=== PATIENT | female | born 1995 | race Caucasian/White ===

== ENCOUNTER 2019-07-01 05:42 | Emergency (ER) | payer MEDICAID, SELFPAY ==
[2019-07-01] VITALS (7 sets, daily range): BP systolic 113–127; BP diastolic 63–73; PULSE 80–98; RESP 16–18; TEMP 36.8; O2SAT 97–99; BMI 29.0
--- NOTE | 2019-07-01 05:45 | PC.NURSE ---
Patient brought in by EMS with abdominal pain, patient states that her pain started in her back on the right side and today she started having bad abdominal cramping around 2300 today. Patient states she was at work and started spotting. Patient states she came out of the bathroom after vomiting and woke up on the floor with her coworker above her. Patient states her has not been confirmed with an ultrasound.
--- NOTE | 2019-07-01 06:00 | ED_ITS ---
HPI - Abdominal Pain General: Chief Complaint: Abdominal Pain Stated Complaint: POSSIBLE MISCARRIAGE Time Seen by Provider: 07/01/19 06:00 History of Present Illness: HPI narrative: 24-year-old female presents complaining of vaginal bleeding and spotting that began overnight. Her last menstrual period was 04/18/2019 we will treat for 10 weeks and 4 days gestation patient self reports being SAB 7. Patient also reports having a ovarian cyst in the past. MD elicited complaint: abdominal pain Onset (ago): hour(s) (8 to 10 hours ago) Pain Consistency: intermittent Location: Suprapubic and Pelvis Severity: severe Quality: cramping and aching Migration to: other (Low back) Exacerbating factors: nothing Relieving factors: nothing Associated Symptoms: Reports nausea and other (Vaginal bleeding); Denies chills, dysuria and fever(s) Review of Systems Const: Denies: fever, chills, body aches, change in appetite, fatigue or malaise ENMT: Denies: throat pain, ear pain, nasal discharge or nasal congestion Card: Denies: chest pain, edema, shortness of breath on exertion or shortness of breath when lying down Resp: Denies: shortness of breath, productive cough or non-productive cough GI: Reports: nausea and other (Vaginal bleeding) : Denies: flank pain, difficulty urinating, painful urination, urinary frequency or urinary urgency Skin/Breast: Denies: rash or itching PFSH ED PFSH: Statuses (acute, chronic, etc) shown below reflect problem list status as previously entered and may not be historically accurate Social History Smoking and tobacco status: current every day smoker Female Reproductive History: : 10 Physical Exam Const: COMMON NORMALS: no apparent distress GENERAL APPEARANCE: cooperative and comfortable ORIENTATION/CONSCIOUSNESS: Yes awake, Yes oriented to person, Yes oriented to place and Yes oriented to time HENMT: COMMON NORMALS: normocephalic, head/scalp atraumatic, hearing grossly normal bilaterally, external ears normal, EAC's normal, TM's normal bilaterally, nasal mucous membranes and turbinates normal, moist oral mucous membranes and oropharynx normal HEAD & SCALP: normocephalic and atraumatic NOSE: nasal mucous membranes and turbinates normal EXTERNAL EAR: Yes external ears normal EXTERNAL AUDITORY CANAL: EAC's normal TYMPANIC MEMBRANE: TM's normal bilaterally Eye: COMMON NORMALS: PERRL, EOMs intact bilaterally, conjunctivae normal and no scleral icterus CONJUNCTIVA: Yes conjunctivae normal PUPIL: Yes PERRL Neck/C-Spine: COMMON NORMALS: full ROM, no lymphadenopathy, supple and no JVD Lymph: LYMPHATIC: no lymphadenopathy noted and no lymphedema noted Resp: COMMON NORMALS: normal respiratory effort, no retractions, no use of accessory muscles and clear to auscultation bilaterally AUSCULTATION: clear to auscultation bilaterally Cardio: COMMON NORMALS: no JVD, regular rate, regular rhythm and no murmurs RATE: regular rate RHYTHM: regular rhythm GI: COMMON NORMALS: soft to palpation and no hepatosplenomegaly AUSCULTATION: Yes normoactive bowel sounds PALPATION: Yes soft, No tender, No guarding and Yes no hepatosplenomegaly Back/Pelvis: OTHER: Pelvic exam done by VON Castellanos while I was attending to the patient. He reports copious cervical mucus semi-purulent moderate cervical motion tenderness no active bleeding from cervical loss. Extremity: COMMON NORMALS: normal to inspection, normal capillary refill, no clubbing, cyanosis or edema, no calf tenderness and no pedal edema Neuro: SENSORIUM/ORIENTATION: Yes oriented to person, Yes oriented to place and Yes oriented to time Skin: COMMON NORMALS: no rashes or lesions noted GENERAL SKIN EXAM: no rashes or lesions noted Course ED course: Stephanie findings with the patient we will go ahead and treat her as if she may have chlamydia infection she was given 500 Rocephin a gram of Zithromax follow-up with her primary care invoice classification clerk Vital Signs: Vital signs: Vital Signs Temperature 98.3 F 07/01/19 05:44 Pulse Rate 80 07/01/19 09:11 Respiratory Rate 16 07/01/19 09:11 Blood Pressure 116/71 07/01/19 09:11 Pulse Oximetry 97 07/01/19 09:11 MDM - Abdominal Pain Lab Data: Labs: Lab Results 07/01/19 07/01/19 07/01/19 Range/Units 06:11 06:11 06:11 WBC 7.6 (4.0-10.0) 10^3/ uL RBC 3.77 L (4.1-5.3) 10^6/u L Hgb 11.2 L (11.5-15.3) g/dL Hct 33.1 L (37.0-47.0) % MCV 87.8 (81-99) fL MCH 29.7 (28.0-34.0) pg MCHC 33.8 (30.0-36.0) g/dL RDW 12.5 (12.1-15.1) % Plt Count 236 (130-400) 10^3/c mm MPV 10.1 (7.4-10.4) fL Neut % (Auto) 60.2 % Lymph % (Auto) 31.4 % [place] % (Auto) 7.2 % Eos % (Auto) 0.9 % Baso % (Auto) 0.0 % Neut # (Auto) 4.6 (1.8-7.7) 10^3/u L Lymph # (Auto) 2.4 (0.8-4.8) 10^3/u L [place] # (Auto) 0.6 (0.2-0.9) 10^3/u L Eos # (Auto) 0.1 (0.0-0.8) 10^3/u L Baso # (Auto) 0.0 (0.0-0.1) 10^3/u L Nucleated RBC % (a uto) 0 % Nucleated RBCs # 0.0 /100WBC Sodium 136 (136-145) mmol/L Potassium 3.5 (3.5-5.1) mmol/L Chloride 105 (98-107) mmol/L Carbon Dioxide 21 L (22-29) mmol/L Anion Gap 13.5 (5-19) BUN 9 (6-20) mg/dL Creatinine 0.3 L (0.5-0.9) mg/dL GFR Calculation 273.3 H (90-130) mL/min Glucose 101 (65-115) mg/dL Calcium 8.7 (8.5-10.5) mg/dL Total Bilirubin < 0.2 (0.15-1.2) mg/dL AST 12 (0-32) U/L ALT 8 (0-33) U/L Alkaline Phosphata se 50 (35-105) IU/L Total Protein 6.1 L (6.6-8.7) g/dL Albumin 3.4 L (3.5-5.2) g/dL Globulin 2.7 (1.3-4.6) g/dL Ser , [place] 95127.00 mIU/mL Urine Color (Yellow) Urine Appearance (CLEAR) Urine pH (5-7) Ur Specific Gravit y (1.005-1.030) Urine Protein (Negative) Urine Glucose (UA) (Normal) Urine Ketones (Negative) Urine Occult Blood (Negative) Urine Nitrate (Negative) Urine Bilirubin (NEGATIVE) Urine Urobilinogen (Negative) mg/dL Ur Leukocyte Jessica ase (Negative) Urine RBC (0-2) /hpf Urine WBC (0-5) /hpf Ur Squamous Epith Cells (0-5) Urine Bacteria (NONE) Blood Type 07/01/19 07/01/19 Range/Units 06:11 06:15 WBC (4.0-10.0) 10^3/ uL RBC (4.1-5.3) 10^6/u L Hgb (11.5-15.3) g/dL Hct (37.0-47.0) % MCV (81-99) fL MCH (28.0-34.0) pg MCHC (30.0-36.0) g/dL RDW (12.1-15.1) % Plt Count (130-400) 10^3/c mm MPV (7.4-10.4) fL Neut % (Auto) % Lymph % (Auto) % [place] % (Auto) % Eos % (Auto) % Baso % (Auto) % Neut # (Auto) (1.8-7.7) 10^3/u L Lymph # (Auto) (0.8-4.8) 10^3/u L [place] # (Auto) (0.2-0.9) 10^3/u L Eos # (Auto) (0.0-0.8) 10^3/u L Baso # (Auto) (0.0-0.1) 10^3/u L Nucleated RBC % (a uto) % Nucleated RBCs # /100WBC Sodium (136-145) mmol/L Potassium (3.5-5.1) mmol/L Chloride (98-107) mmol/L Carbon Dioxide (22-29) mmol/L Anion Gap (5-19) BUN (6-20) mg/dL Creatinine (0.5-0.9) mg/dL GFR Calculation (90-130) mL/min Glucose (65-115) mg/dL Calcium (8.5-10.5) mg/dL Total Bilirubin (0.15-1.2) mg/dL AST (0-32) U/L ALT (0-33) U/L Alkaline Phosphata se (35-105) IU/L Total Protein (6.6-8.7) g/dL Albumin (3.5-5.2) g/dL Globulin (1.3-4.6) g/dL Ser , Roberto i-Qnt mIU/mL Urine Color Yellow (Yellow) Urine Appearance Cloudy (CLEAR) Urine pH 6 (5-7) Ur Specific Gravit y 1.020 (1.005-1.030) Urine Protein Neg (Negative) Urine Glucose (UA) Norm (Normal) Urine Ketones Negative (Negative) Urine Occult Blood Neg (Negative) Urine Nitrate Negative (Negative) Urine Bilirubin Neg (NEGATIVE) Urine Urobilinogen Norm (Negative) mg/dL Ur Leukocyte Jessica ase Negative (Negative) Urine RBC 0-4 H (0-2) /hpf Urine WBC 0-4 H (0-5) /hpf Ur Squamous Epith Cells 15-25 H (0-5) Urine Bacteria 2+ H (NONE) Blood Type A Positive Discharge Plan Discharge Patient Disposition: Home, Self-Care Clinical Impression: related condition in first trimester, Subchorionic hematoma in first trimester, Concern about STD in female without diagnosis Condition: Stable Discharge Orders: Discharge Order (Routine); Ordered 07/01/19 Ordered By: Osvaldo Guerra Discharge Diet: Usual diet Discharge Activity: Limit activity as instructed Activity Restrictions/Additional Instructions: Limited activity. Pelvic rest. Follow-up with your invoice classification clerk for repeat pel allan cultures and follow-up on subchorionic hemorrhage found on ultrasound today Discharge Date/Time: 07/01/19 09:11 Coding Level of Care Code ED Percussion Teacher for Ronaldo Hicks Exam Problem Focused
--- NOTE | 2019-07-01 06:10 | PC.NURSE ---
lab in room
--- NOTE | 2019-07-01 06:15 | PC.NURSE ---
Lab out of room, tech in room with urine clean catch packaging for patient.
--- NOTE | 2019-07-01 06:17 | PC.NURSE ---
Patient ambulated to bathroom
[2019-07-01 06:24] LABS: Eosinophils # 0.1 10^3/uL (0.0-0.8); Eosinophils % 0.9 %; Hematocrit 33.1 % (37.0-47.0); Hemoglobin 11.2 g/dL (11.5-15.3); Lymphocytes # 2.4 10^3/uL (0.8-4.8); Lymphocytes % 31.4 %; Mean Corpuscular HGB Conc 33.8 g/dL (30.0-36.0); Mean Corpuscular Hemoglobin 29.7 pg (28.0-34.0); Mean Corpuscular Volume 87.8 fL (81-99); Mean Platelet Volume 10.1 fL (7.4-10.4); Monocytes # 0.6 10^3/uL (0.2-0.9); Monocytes % 7.2 %; Neutrophils # 4.6 10^3/uL (1.8-7.7); Neutrophils % 60.2 %; Nucleated Red Blood Cells % 0 %; Platelet Count 236 10^3/cmm (130-400); Red Blood Count 3.77 10^6/uL (4.1-5.3); Red Cell Distribution Width 12.5 % (12.1-15.1); White Blood Count 7.6 10^3/uL (4.0-10.0)
[2019-07-01 06:40] LABS: Urine Appearance Cloudy (CLEAR); Urine Color Yellow (Yellow); pH Urine 6 (5-7)
[2019-07-01 06:41] LABS: Add Urine Microscopic? YES; Bilirubin Urine Neg (NEGATIVE); Blood Urine Neg (Negative); Glucose Urine UA Norm (Normal); Ketones Urine Negative (Negative); Leukocyte Esterase Urine Negative (Negative); Nitrate Urine Negative (Negative); Protein Urine Neg (Negative); Urobilinogen Urine Norm (Negative)
[2019-07-01 06:42] LABS: Add Urine Culture? No; Bacteria Urine 2+; RBC Urine 0-4 /hpf (0-2); Squamous Epithelial Cell Urine 15-25 (0-5); WBC Urine 0-4 /hpf (0-5)
[2019-07-01 07:10] LABS: Anion Gap 13.5 (5-19); Carbon Dioxide 21 mmol/L (22-29); Chloride 105 mmol/L (98-107); Potassium 3.5 mmol/L (3.5-5.1); Sodium 136 mmol/L (136-145)
[2019-07-01 07:11] LABS: Alanine Aminotransferase 8 U/L (0-33); Albumin Level 3.4 g/dL (3.5-5.2); Alkaline Phosphatase 50 IU/L (35-105); Aspartate Amino Transferase 12 U/L (0-32); Blood Urea Nitrogen 9 mg/dL (6-20); Calcium 8.7 mg/dL (8.5-10.5); Globulin 2.7 g/dL (1.3-4.6); Glomerular Filtration Rate 273.3 mL/min (90-130); Glucose 101 mg/dL (65-115); Total Bilirubin < 0.2 mg/dL (0.15-1.2); Total Protein 6.1 g/dL (6.6-8.7)
[2019-07-01] MEDS: morphine 4 mg/mL SDV 1 mL 2 MG IVP (07:18)
[2019-07-01] MEDS: ondansetron 2 mg/ML SDV 2 mL 4 MG IVP (07:18)
--- NOTE | 2019-07-01 07:27 | US_ITS ---
WS: [id number] EARLY OBSTETRICAL ULTRASOUND (<14 WEEKS). HISTORY: threatened AB COMPARISON: None available. Single intrauterine gestational sac is identified. Cardiac activity at 157 BPM. Windmill-rump length heather sures 2.4 cm which corresponds to a gestation of 9w0d. Normal-appearing yolk sac and amnion demonstra viviane. Smallsubchorionic hemorrhage.Complex fluid collection along the lower gestational sac measures 3 .4 x 0.7 x 1.0 cm. This is at the internal cervical os. Cervix remains closed. No free fluid. Neither ovary is identified. US/US OB limited [id number] IMPRESSION: 1. Single intrauterine gestation of 9 weeks 0 days and EDC of 02/03/2020. 2. Normal cardiac activity. 3. Small subchorionic hemorrhage near the internal cervical os.
--- NOTE | 2019-07-01 07:36 | W.ED.ABDPA2 ---
HPI - Abdominal Pain General: Chief Complaint: Abdominal Pain Stated Complaint: POSSIBLE MISCARRIAGE Time Seen by Provider: 07/01/19 06:00 History of Present Illness: MD elicited complaint: abdominal pain Severity: severe Quality: cramping and aching Migration to: other (Low back) Exacerbating factors: nothing Relieving factors: nothing PFSH ED PFSH: Statuses (acute, chronic, etc) shown below reflect problem list status as previously entered and may not be historically accurate Social History Smoking and tobacco status: current every day smoker Female Reproductive History: : 10 Physical Exam : SPECULUM EXAM - CERVIX: Yes cervical os closed, Yes mucoid cervix, Yes cervical tenderness and Yes other (erythema to the cervix) BIMANUAL EXAM - VAGINA & UTERUS: Yes cervical tenderness Course ED course: 734, pelvic exam completed for Dr. Da Silva. Cervical office is closed inflammation and friability is noted at the external cervical tissue. No blood at the office opening is noted. Cloudy mucoid discharge is noted from the cervix. Dr. Guerra informed of abnormalities and collection of swabs. ww Vital Signs: Vital signs: Vital Signs Temperature 98.3 F 07/01/19 05:44 Pulse Rate 87 07/01/19 07:43 Respiratory Rate 16 07/01/19 07:43 Blood Pressure 113/63 07/01/19 07:43 Pulse Oximetry 97 07/01/19 07:43 MDM - Abdominal Pain Lab Data: Labs: Lab Results 07/01/19 07/01/19 07/01/19 Range/Units 06:11 06:11 06:11 WBC 7.6 (4.0-10.0) 10^3/ uL RBC 3.77 L (4.1-5.3) 10^6/u L Hgb 11.2 L (11.5-15.3) g/dL Hct 33.1 L (37.0-47.0) % MCV 87.8 (81-99) fL MCH 29.7 (28.0-34.0) pg MCHC 33.8 (30.0-36.0) g/dL RDW 12.5 (12.1-15.1) % Plt Count 236 (130-400) 10^3/c mm MPV 10.1 (7.4-10.4) fL Neut % (Auto) 60.2 % Lymph % (Auto) 31.4 % [place] % (Auto) 7.2 % Eos % (Auto) 0.9 % Baso % (Auto) 0.0 % Neut # (Auto) 4.6 (1.8-7.7) 10^3/u L Lymph # (Auto) 2.4 (0.8-4.8) 10^3/u L [place] # (Auto) 0.6 (0.2-0.9) 10^3/u L Eos # (Auto) 0.1 (0.0-0.8) 10^3/u L Baso # (Auto) 0.0 (0.0-0.1) 10^3/u L Nucleated RBC % (a uto) 0 % Nucleated RBCs # 0.0 /100WBC Sodium 136 (136-145) mmol/L Potassium 3.5 (3.5-5.1) mmol/L Chloride 105 (98-107) mmol/L Carbon Dioxide 21 L (22-29) mmol/L Anion Gap 13.5 (5-19) BUN 9 (6-20) mg/dL Creatinine 0.3 L (0.5-0.9) mg/dL GFR Calculation 273.3 H (90-130) mL/min Glucose 101 (65-115) mg/dL Calcium 8.7 (8.5-10.5) mg/dL Total Bilirubin < 0.2 (0.15-1.2) mg/dL AST 12 (0-32) U/L ALT 8 (0-33) U/L Alkaline Phosphata se 50 (35-105) IU/L Total Protein 6.1 L (6.6-8.7) g/dL Albumin 3.4 L (3.5-5.2) g/dL Globulin 2.7 (1.3-4.6) g/dL Ser , [place]Qnt 25460.00 mIU/mL Urine Color (Yellow) Urine Appearance (CLEAR) Urine pH (5-7) Ur Specific Gravit y (1.005-1.030) Urine Protein (Negative) Urine Glucose (UA) (Normal) Urine Ketones (Negative) Urine Occult Blood (Negative) Urine Nitrate (Negative) Urine Bilirubin (NEGATIVE) Urine Urobilinogen (Negative) mg/dL Ur Leukocyte Jessica ase (Negative) Urine RBC (0-2) /hpf Urine WBC (0-5) /hpf Ur Squamous Epith Cells (0-5) Urine Bacteria (NONE) Blood Type 07/01/19 07/01/19 Range/Units 06:11 06:15 WBC (4.0-10.0) 10^3/ uL RBC (4.1-5.3) 10^6/u L Hgb (11.5-15.3) g/dL Hct (37.0-47.0) % MCV (81-99) fL MCH (28.0-34.0) pg MCHC (30.0-36.0) g/dL RDW (12.1-15.1) % Plt Count (130-400) 10^3/c mm MPV (7.4-10.4) fL Neut % (Auto) % Lymph % (Auto) % [place] % (Auto) % Eos % (Auto) % Baso % (Auto) % Neut # (Auto) (1.8-7.7) 10^3/u L Lymph # (Auto) (0.8-4.8) 10^3/u L [place] # (Auto) (0.2-0.9) 10^3/u L Eos # (Auto) (0.0-0.8) 10^3/u L Baso # (Auto) (0.0-0.1) 10^3/u L Nucleated RBC % (a uto) % Nucleated RBCs # /100WBC Sodium (136-145) mmol/L Potassium (3.5-5.1) mmol/L Chloride (98-107) mmol/L Carbon Dioxide (22-29) mmol/L Anion Gap (5-19) BUN (6-20) mg/dL Creatinine (0.5-0.9) mg/dL GFR Calculation (90-130) mL/min Glucose (65-115) mg/dL Calcium (8.5-10.5) mg/dL Total Bilirubin (0.15-1.2) mg/dL AST (0-32) U/L ALT (0-33) U/L Alkaline Phosphata se (35-105) IU/L Total Protein (6.6-8.7) g/dL Albumin (3.5-5.2) g/dL Globulin (1.3-4.6) g/dL Ser , Roberto i-Qnt mIU/mL Urine Color Yellow (Yellow) Urine Appearance Cloudy (CLEAR) Urine pH 6 (5-7) Ur Specific Gravit y 1.020 (1.005-1.030) Urine Protein Neg (Negative) Urine Glucose (UA) Norm (Normal) Urine Ketones Negative (Negative) Urine Occult Blood Neg (Negative) Urine Nitrate Negative (Negative) Urine Bilirubin Neg (NEGATIVE) Urine Urobilinogen Norm (Negative) mg/dL Ur Leukocyte Jessica ase Negative (Negative) Urine RBC 0-4 H (0-2) /hpf Urine WBC 0-4 H (0-5) /hpf Ur Squamous Epith Cells 15-25 H (0-5) Urine Bacteria 2+ H (NONE) Blood Type A Positive Coding Level of Care Code ED Set Up Mechanic Crown Assembly Machine for Chg Fabiola
[2019-07-01] MEDS: cefTRIAXone 1,000 mg SDV 500 MG IM (08:30)
[2019-07-01] MEDS: azithromycin 250 mg Tablet 1000 MG PO (08:32)
--- NOTE | 2019-07-04 10:44 | DCPLANNER ---
Patient is to follow up with her solvent plant treater, pillowcase maker called patient to confirm that patient had an solvent plant treater, and if patient would like for pillowcase maker to get patient established with someone an schedule an appointment for patient. airport operations duty manager unable to speak with patient at this time, a voicemail was left for patient to return case planner phone call.
== END 2019-07-01 09:11 | disposition home or self-care (01) ==
PROVIDERS: Emergency Provider Family Medicine
DX: O20.8 Other hemorrhage in early pregnancy (principal); O99.331 Smoking (tobacco) complicating pregnancy, first trimester; F17.210 Nicotine dependence, cigarettes, uncomplicated; Z3A.10 10 weeks gestation of pregnancy
CPT/HCPCS: 36415; 76815; 80053; 81001; 84702; 85025; 86900; 87070; 87210; 87491; 87591; 87661; 96372; 96374; 96375; 99284; A9270; J0696; J2270; J2405; Q0144

== ENCOUNTER → 2019-08-30 13:27 | Outpatient (BNVA) | payer MEDICAID, SELFPAY | PROVIDERS: Visit Provider Nurse Practitioner Family | DX: Z11.59 Encounter for screening for other viral diseases (principal); Z3A.20 20 weeks gestation of pregnancy; Z20.828 Contact with and (suspected) exposure to other viral communicable diseases | CPT/HCPCS: 87400; 87635 ==

== ENCOUNTER 2019-11-08 18:30 | Outpatient (CLI) | payer MEDICAID, SELFPAY ==
[2019-11-08] VITALS (9 sets, daily range): BP systolic 102–122; BP diastolic 54–73; PULSE 78–88; RESP 15–18; TEMP 36.7–36.9; BMI 29.9
[2019-11-08 18:49] LABS: Nitrazine Paper, PH Positive
[2019-11-08 18:59] LABS: Actim Prom Negative
[2019-11-08] MEDS: betamethasone susp 6 mg/mL 5 mL 12 MG IM (19:15)
[2019-11-08 19:58] LABS: Actim Prom Negative
--- NOTE | 2019-11-08 19:59 | PC.NURSE ---
1940 DR NGUYEN AND THIS NURSE AT BEDSIDE; DR NGUYEN TOOK SAMPLES OF LEAKED FLUID FOR FERN TEST. DR NGUYEN STATED THERE WERE NO SIGNS PT WAS GROSSLY RUPTURED, DR NGUYEN'S NITRIZINE TEST WAS NEGATIVE. ACTIM PROM REPERFORMED BY DR NGUYEN ALSO.
--- NOTE | 2019-11-08 20:05 | US_ITS ---
WS: [id number] US OB limited [id number] REASON FOR EXAM: RAJIV AND CERVICAL LENGTH FINDINGS: Anterior placenta is identified. heart rate 157 beats for minute. The cervix measured 5.72 cm Femoral length 5.54 cm 29 weeks 1 day gestation due date January 23, 2020 Amniotic fluid indices 12.88 cm. US/ OB limited [id number] IMPRESSION: Normal amniotic fluid indices Normal cervix Interuterine at 29 weeks 1 day gestation due date January 23, 2020.
--- NOTE | 2019-11-08 20:21 | PM.SDS ---
Short Stay Summary Providers Date of Admit/Discharge: 11/08/19 Attending Provider: Yun Baum MD Chief Complaint: abd pain HPI History of Present Illness Angelica Diaz is a 24 year old female G3, P2 at 29 weeks gestation with an PENNIE of 01/24/2020 who presented to labor and delivery complaining of regular contractions and loss of fluid. She states that she had been sandra since about 9:00 last evening. At first they were irregular. Around 2 PM this afternoon they became more frequent every 5 to 10 minutes. She states that she tried to rest relax and drink water to make them go away. However around 4:30 in the afternoon she felt a gush of fluid and had concern for rupture of membranes so she presented to labor and delivery. While standing in triage she had another gush of fluid that wet her pants and the floor. She felt that she was sandra about every 10 minutes. She was feeling baby move well. She had no vaginal bleeding. Review of Systems Const: Denies: fever(s) or chills Eyes: Denies: blurry vision ENMT: Denies: throat pain Card: Denies: syncope or dyspnea on exertion Resp: Denies: dyspnea, productive cough or non-productive cough GI: Reports: nausea (She thinks from being hungry); Denies: abdominal pain or change in bowel habits : Reports: other (Contractions as close as every 5 to 10 minutes); Denies: flank pain, difficulty voiding, dysuria, genital pruritis, vaginal bleeding or pelvic pain Musc: Denies: back pain or extremity pain Skin/Breast: Denies: rash Home Meds/Allergies Home Medications and Allergies Home Medications Medication Instructions Recorded Confirmed Type prenat.vits,daniel,jbv-[id number]-bjood 1 tab PO DAILY 08/30/19 08/30/19 History Allergies Allergy/AdvReac Type Severity Reaction Status Date / Time etonogestrel [From Nexplanon] Allergy ALGY-Hives Verified 08/30/19 10:02 PFSH Acute PFSH: Social History (Updated 08/30/19 @ 10:47 by Sydnee Villarreal LPN, RT) Smoking and tobacco status: smoker, details unknown cigarettes Packs smoked per day: 0.5 Years cigarettes smoked: 8 Lives independently: Yes Household members: spouse Marital status: Current occupational status: employed 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[place], [place]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 Current gender identity: Female Female Reproductive History: : 3 Vitals/I&O/Wt Last Vital Signs Temp 98.4 F 11/08/19 20:11 Pulse 80 11/08/19 20:18 Resp 16 11/08/19 20:11 BP 105/56 11/08/19 20:18 Weight last 48 hrs Weight 186 lb Physical Exam Const: COMMON NORMALS: no acute distress and healthy appearing GENERAL APPEARANCE: cooperative and comfortable; not in distress HENMT: COMMON NORMALS: normocephalic and atraumatic HEAD & SCALP: normocephalic and atraumatic FACE & SINUS: normal facial exam Eye: COMMON NORMALS: Equal, round and reactive pupils present and EOMs intact bilaterally PUPIL: Yes Equal, round and reactive pupils present GI: COMMON NORMALS: Soft to palpation and non-tender PALPATION: Yes Soft to palpation and Yes Other GI palpation findings present (Fundal height 29 cm) : EXTERNAL FEMALE EXAM: Yes normal appearance of the urethra SPECULUM EXAM - VAGINA: No vaginal bleeding, No swelling and Yes Vaginal discharge present Vaginal discharge present: white (Minimal flecks adhearant to olivas) SPECULUM EXAM - CERVIX: Yes Cervical os closed, Yes mucoid cervix and Yes Other cervical findings present (No pooling, nitrazine negative) OB/EXTERNAL & SPECULUM: No vaginal bleeding Extremity: GENERAL: No calf tenderness and No edema Psych: COMMON NORMALS: mental status grossly normal APPEARANCE: Yes grossly normal ATTITUDE: Yes calm (She seems more concerned about getting a snack and s providing her with pants to go home in) SSS Data Data Completed and Pending: Pending at discharge Category Date Time Status US OB limited [id number] Stat Ultrasound 11/08/19 20:05 Ordered Diagnoses at Discharge Discharge Diagnosis (1) 29 weeks gestation of : Status: Acute Problem details: Due to the amount of clear fluid leaking the patient was given a dose of betamethasone while further tests were pending. (2) Abnormal vaginal fluids: Status: Acute Problem details: The patient had negative nitrazine done by nursing. She had ActimPROM that was also negative. Nursing was still concerned for rupture-- due to the amount of clear fluid they witnessed on her clothes, ian, and floor. I presented to labor and delivery and performed speculum examination. There was no pooling. Vaginal fern test x2, one including cervical mucus, were negative. Nitrazine was negative from vaginal vault and positive from cervical mucus. I also performed an ActimPROM and fern on her saturated chuk - both were negative. Thus I am doubtful that she is ruptured. To be extra cautious however we will have ultrasound come and check her RAJIV as well as cervical length. 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 Patient states that since receiving the betamethasone she has not felt any more contractions. Ultrasound for cervical length is currently pending. Update cervical length is greater than 4 cm and she has continued to not show any contractions nor has she felt any since receiving the betamethasone. She will be discharged home Discharge Plan Discharge Patient Disposition: Home, Self-Care Prescriptions: No Action prenat.vits,daniel,[id number] Tablet 1 tab PO DAILY RF: 0 Diet: Usual diet Activity: Resume usual activity Patient Instructions: OB Undelivered Discharge Activity Restrictions/Additional Instructions: f/u as scheduled Attestations Medical Necessity Statement*: Possible rupture of membranes and contractions with need for continuous monitoring and further evaluation Time Spent in Patient Care*: greater than 30 min Quality Metrics Clinical Quality Measures: During this hospital stay, did patient experience: None Coding Level of Care Code Acute Proofing Machine Operator for Chg Fwd Diagnoses 29 weeks gestation of Z3A.29 Abnormal vaginal fluids R87.9 Premature uterine contractions O47.9
== END 2019-11-08 20:45 | disposition home or self-care (01) ==
LOC: OPOB 18:31 → OBGYN 18:31
PROVIDERS: Visit Provider Family Medicine
DX: O47.9 False labor, unspecified (principal); Z3A.29 29 weeks gestation of pregnancy
CPT/HCPCS: 12345; 76815; 83986; 84112; 96372; 99211; J0702

== ENCOUNTER 2019-11-24 14:10 | Outpatient (CLI) | payer MEDICAID, SELFPAY ==
[2019-11-24 14:10] VITALS: BMI 30.7
[2019-11-24 14:18] VITALS: BP 118/67; PULSE 104; RESP 18; TEMP 36.7
[2019-11-24 14:34] VITALS: BP 114/58; PULSE 100
== END 2019-11-24 14:50 | disposition home or self-care (01) ==
LOC: OPOB 14:36
PROVIDERS: Visit Provider Family Medicine
DX: O36.8190 Decreased fetal movements, unspecified trimester, not applicable or unspecified (principal); Z3A.00 Weeks of gestation of pregnancy not specified
CPT/HCPCS: 59025; 99211

== ENCOUNTER 2019-12-16 14:42 | Outpatient (CLI) | payer MEDICAID, SELFPAY ==
[2019-12-16] VITALS (26 sets, daily range): BP systolic 0–132; BP diastolic 0–77; PULSE 87–116; RESP 17; TEMP 36.8; O2SAT 96–99; BMI 31.3
[2019-12-16] MEDS: terbutaline 1 mg/mL INJ 0.25 MG SUBCUT ×2 (16:28→17:51)
[2019-12-16] MEDS: lactated ringers 1,000 ML 999 ML IV (17:53)
[2019-12-16] MEDS: NIFEdipine ER (24 hr) 30 mg Tablet PO (17:54)
== END 2019-12-16 18:45 | disposition home or self-care (01) ==
LOC: OPOB 14:49 → OBGYN 18:38
PROVIDERS: Visit Provider Family Medicine
DX: O26.899 Other specified pregnancy related conditions, unspecified trimester (principal); Z3A.00 Weeks of gestation of pregnancy not specified; N89.8 Other specified noninflammatory disorders of vagina; R10.9 Unspecified abdominal pain
CPT/HCPCS: 36415; 59025; 83986; 96372; 99211; J3105

== ENCOUNTER 2019-12-22 14:54 | Outpatient (CLI) | payer MEDICAID, SELFPAY ==
[2019-12-22] VITALS (30 sets, daily range): BP systolic 0–142; BP diastolic 0–79; PULSE 93–122; TEMP 37.5; O2SAT 95–98; BMI 31.3
[2019-12-22] MEDS: NIFEdipine ER (24 hr) 30 mg Tablet PO (16:20)
[2019-12-22] MEDS: terbutaline 1 mg/mL INJ 0.25 MG SUBCUT (16:21)
[2019-12-22] MEDS: lactated ringers 1,000 ML 999 ML IV (16:24)
[2019-12-22 16:25] LABS: Nitrazine Paper, PH Negative
== END 2019-12-22 17:30 | disposition home or self-care (01) ==
LOC: OPOB 15:01 → OBGYN 15:01
PROVIDERS: Visit Provider Family Medicine
DX: O26.899 Other specified pregnancy related conditions, unspecified trimester (principal); Z3A.00 Weeks of gestation of pregnancy not specified; R10.9 Unspecified abdominal pain
CPT/HCPCS: 59025; 83986; 96372; 99211; J3105

== ENCOUNTER 2020-01-02 16:39 | Outpatient (CLI) | payer MEDICAID, SELFPAY ==
[2020-01-02 16:39] VITALS: BMI 30.7
[2020-01-02 17:05] VITALS: BP 126/72; PULSE 105
[2020-01-02 17:10] VITALS: TEMP 36.8
[2020-01-02 17:21] LABS: Nitrazine Paper, PH Negative
[2020-01-02 18:07] VITALS: BP 126/72; PULSE 105; TEMP 36.8
== END 2020-01-02 17:40 | disposition home or self-care (01) ==
LOC: OPOB 16:50 → OBGYN 17:35
PROVIDERS: Visit Provider Family Medicine
DX: O26.899 Other specified pregnancy related conditions, unspecified trimester (principal); Z3A.00 Weeks of gestation of pregnancy not specified; R10.9 Unspecified abdominal pain
CPT/HCPCS: 59025; 83986; 99211

== ENCOUNTER 2020-01-07 22:52 | Inpatient (IN) | payer MEDICAID, SELFPAY ==
[2020-01-07 21:17] VITALS: BMI 30.2
[2020-01-07 21:25] VITALS: BP 117/71; PULSE 105; RESP 18; TEMP 36.6
[2020-01-07] MEDS: lactated ringers 1,000 ML 999 ML IV (23:22)
[2020-01-08] VITALS (150 sets, daily range): BP systolic 0–153; BP diastolic 0–105; PULSE 62–128; RESP 16–18; TEMP 36.6–37; O2SAT 94–100
[2020-01-08 00:13] LABS: Basophils % 0.2 %; Eosinophils # 0.1 10^3/uL (0.0-0.8); Eosinophils % 0.6 %; Hematocrit 32.9 % (37.0-47.0); Hemoglobin 10.9 g/dL (11.5-15.3); Lymphocytes # 2.7 10^3/uL (0.8-4.8); Lymphocytes % 25.2 %; Mean Corpuscular HGB Conc 33.1 g/dL (30.0-36.0); Mean Corpuscular Hemoglobin 30.1 pg (28.0-34.0); Mean Corpuscular Volume 90.9 fL (81-99); Mean Platelet Volume 10.8 fL (7.4-10.4); Monocytes # 0.8 10^3/uL (0.2-0.9); Monocytes % 7.8 %; Neutrophils % 65.8 %; Nucleated Red Blood Cells % 0 %; Platelet Count 259 10^3/cmm (130-400); Red Blood Count 3.62 10^6/uL (4.1-5.3); Red Cell Distribution Width 12.3 % (12.1-15.1); White Blood Count 10.6 10^3/uL (4.0-10.0)
--- NOTE | 2020-01-08 01:29 | ANES.PREANE2 ---
Pre-Anesthetic Assessment Pre-Anesthetic Assessment: Height/Weight: Height 1.68 m Weight 84.822 kg Temp Pulse Resp BP Pulse Ox 97.8 F 85 18 111/60 98 01/07/20 21:25 01/08/20 01:24 01/07/20 21:25 01/08/20 01:24 01/08/20 01:23 Preop Diagnosis: IUP Proposed Procedure: Labor epidural Was Beta Jess taken within 24 hours: N/A Social: Social History: No alcohol and No tobacco Exam: Pre-Anes Outpt Exam: alert, oriented x 3 and clear to auscultation bilaterally Airway: Submandibular: WNL Cervical ROM: WNL MP: 1 Pulmonary: Pulmonary: None reported CV/HEM: CV/HEM: None reported : : None reported Hepatic: Hepatic: None reported GI: GI: GERD Metabolic: Metabolic: None reported Musc/skel: Musc/skel: None reported Neuropsych: Neuropsych: None reported Anesthetic Plan: ASA status: 1 Anesthesia: Anesthesia Evaluation and Eval. for regional block Meds/Allergies Current Medications: Current Medications Generic Name Dose Route Start Last Admin Trade Name Freq PRN Reason Stop Dose Admin Lactated Ringer's 1,000 mls @ 999 m ls/hr 01/07/20 22:54 01/07/20 23:22 Lactated Ringers IV 999 mls/hr .Q1H1M PRN Administration ANESTHESIA PFSH Anesthesia PFSH: Social History (Updated 08/30/19 @ 10:47 by Sydnee Villarreal LPN, RT) Smoking and tobacco status: smoker, details unknown cigarettes Packs smoked per day: 0.5 Years cigarettes smoked: 8 Lives independently: Yes Household members: spouse Marital status: Current occupational status: employed 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[place], [place]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 Current gender identity: Female Female Reproductive History: : 3 Data Anesthesia CBC & Chem 7: 01/07/20 23:10 Other Labs: Laboratory Results - last 48 hr 01/07/20 01/07/20 23:10 23:10 WBC 10.6 H RBC 3.62 L Hgb 10.9 L Hct 32.9 L MCV 90.9 MCH 30.1 MCHC 33.1 RDW 12.3 Plt Count 259 MPV 10.8 H Neut % (Auto) 65.8 Lymph % (Auto) 25.2 [place] % (Auto) 7.8 Eos % (Auto) 0.6 Baso % (Auto) 0.2 Neut # (Auto) 7.00 Lymph # (Auto) 2.7 [place] # (Auto) 0.8 Eos # (Auto) 0.1 Baso # (Auto) 0.0 Nucleated RBC % (auto) 0 Nucleated RBCs # 0.0 Blood Type A Positive Rho(D) Type Positive Antibody Screen Negative Cardiac Studies: No Data to Display Anesthesia Procedures Date of Procedure: 01/08/20 Epidural: Time Out Performed: Yes Consents Signed: Procedure Consent Consent: requested by attending/covering physician, from patient and risks and benefits reviewed Lumbar Level: L3-L4 Epidural position: sitting Epidural procedure: sterile prep of area, 1% lidocaine to numb the area (3 cc), 18 g needle (L3-L4 interspace), negative for paresthesia passed, neg for paresthesia, test dose given (3 cc), 0.2% Ropivacaine bolus ml (10 ml ), placed PCEA (13 mls/hr) and 0.2% Ropiavacaine @ mls/hr (13)
[2020-01-08] MEDS: ondansetron 2 mg/ML SDV 2 mL 4 MG IVP ×2 (02:47→17:10)
[2020-01-08] MEDS: dextrose 5%-lactated ringers 1,000 ML 125 ML IV ×3 (03:32→19:02)
[2020-01-08] MEDS: oxytocin 30 UNIT/500 ML BAG IV (11:30)
--- NOTE | 2020-01-08 20:15 | P.HP_ITS ---
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 Her cervix changed from 3 cm to 7 cm and then she seemed to stall out. She received an epidural for pain management. Present Details : 3 Para: 2 Labs Rubella: Immune RPR: Negative GBS: Negative Review of Systems Const: Denies: fever(s) or chills Eyes: Denies: change in vision ENMT: Denies: throat pain Card: Reports: swelling of feet/ankles; Denies: chest pain, palpitations or irregular heart rhythm Resp: Denies: dyspnea, productive cough or chest congestion GI: Reports: abdominal pain (Regular contractions on presentation); Denies: nausea or vomiting : Denies: flank pain Musc: Denies: neck pain Medications/Allergies Home Medications Medication Instructions Recorded Confirmed Last Taken Type prenat.vits,daniel,ubz-nmcd-eminx 1 tab PO DAILY 08/30/19 01/07/20 01/07/20 11:00 History Allergies Allergy/AdvReac Type Severity Reaction Status Date / Time etonogestrel [From Nexplanon] Allergy ALGY-Hives Verified 01/07/20 21:46 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 PFSH: Social History (Updated 08/30/19 @ 10:47 by Sydnee Villarreal LPN, RT) Smoking and tobacco status: smoker, details unknown cigarettes Packs smoked per day: 0.5 Years cigarettes smoked: 8 Lives independently: Yes Household members: spouse Marital status: Current occupational status: employed 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[place], [place]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 Current gender identity: Female History History History 3 Term 2 Miscarriages/Ectopic Living Children 2 Vitals/I&O/Wt Last Vital Signs Temp 98.2 F 01/08/20 17:07 Pulse 72 01/08/20 20:12 Resp 16 01/08/20 17:07 BP 103/60 01/08/20 20:12 Pulse Ox 97 01/08/20 02:19 01/08/20 01/08/20 01/08/20 06:59 14:59 22:59 Intake Total 1000 / 1000 1452.800 / 1452.800 673.367 / 2126.167 Output Total 700 / 700 400 / 1100 Balance 1000 / 1000 752.800 / 752.800 273.367 / 1026.167 Weight last 48 hrs Weight 187 lb Weight 187 lb Physical Exam Const: COMMON NORMALS: no acute distress and healthy appearing GENERAL APPEARANCE: cooperative and comfortable HENMT: COMMON NORMALS: normocephalic and atraumatic HEAD & SCALP: normal to inspection FACE & SINUS: normal facial exam Eye: COMMON NORMALS: Equal, round and reactive pupils present and EOMs intact bilaterally Lymph: LYMPHATIC: no lymphadenopathy noted Chest: COMMONS NORMALS: normal inspection of the chest Resp: COMMON NORMALS: normal respiratory effort, No retractions, No use of accessory muscles and clear to auscultation bilaterally Cardio: COMMON NORMALS: regular rate and regular rhythm GI: INSPECTION: Yes normal to inspection PALPATION: No Tenderness to palpation present (GI) (Gravid) Extremity: COMMON NORMALS: normal to inspection Psych: COMMON NORMALS: mental status grossly normal Urinary Catheter Management^: Tran Latex: Cath Placed During This Visit: yes Reason for Continuing Indwelling Catheter: Accurate Measurement of Urinary Output in Critically Ill Patients Urinary Catheter Date of Insertion: 01/08/20 Urinary Catheter Time of Insertion: 02:00 Data : 01/07/20 23:10 A&P Assessment and plan (1) 37 weeks gestation of : Status: Acute (2) Active labor at term: The patient's labor seems to have stalled out at 7 cm. Her cervix is still extremely thick and baby is very ballotable. We have started her on Pitocin and are titrating this upward. She is comfortable with her epidural. 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
--- NOTE | 2020-01-08 23:02 | PM.MISC ---
Miscellaneous Note Purpose of Documentation: epidural assessment. called to ob for pt complaining of increasing pain over last couple hours despite use of pcea. pt assessed and evaluated and given 4cc 2% lidocaine PF and 100mcg fentanyl via the epidural. Vital signs monitored throughout and charted via RN. last BP 101/56. Pain much improved over 10 minutes.
[2020-01-09] VITALS (23 sets, daily range): BP systolic 92–123; BP diastolic 52–76; PULSE 61–97; RESP 14–16; TEMP 36.4–37; O2SAT 97–98
--- NOTE | 2020-01-09 00:18 | P.PCNOB_ITS ---
Delivery Note: Date of delivery: January 09, 2020 Pre-Delivery Course: The patient had routine care at [facility]. There were no true complications of the however the patient had frequent labor and delivery triage visits for contractions and loss of fluid. She was blood type a positive antibody negative, GC/chlamydia negative, hep B surface antigen NR, hep C antibody NR, HIV NR, rubella immune. She passed her glucose tolerance test. She was GBS negative. Delivery: This 24-year-old G3, P2 presented to labor and delivery at 37 weeks 5 days gestation in active labor. Her labor stalled out at about 7 cm dilation. She received an epidural for pain management. Her labor was then augmented using Pitocin. She had spontaneous rupture of membranes with clear fluid less than 1 hour prior to delivery. The infant was delivered over an intact perineum with bulb suction of the mouth and nares at delivery. There was a nuchal x1 that was loose and reduced upon delivery. The infant was then placed on the mother's chest and the cord was clamped and cut. The infant weighed 3005 g, 6 pounds 10 ounces Apgars 8 and 10. The placenta was delivered grossly intact and normal to inspection. Due to her history of hemorrhage she was given 800 mcg of Cytotec rectally. There were no lacerations. Blood loss was minimal. EBL 75 mL. Mother and infant were doing well after delivery A&P Assessment and plan (1) 37 weeks gestation of : Status: Acute (2) Request for sterilization: Plan for bilateral tubal ligation likely Thursday Status: Acute (3) Normal spontaneous vaginal delivery: Routine care Status: Acute Coding Level of Care Code Acute Director Airport Operations for Chg Fwd Diagnoses 37 weeks gestation of Z3A.37 Request for sterilization Z30.2 Normal spontaneous vaginal delivery O80
--- NOTE | 2020-01-09 03:15 | PC.NURSE ---
Patient ambulated independently pushing open crib from LDR3 to room 203-2.
[2020-01-09] MEDS: prenatal vitamin Capsule 1 CAP PO (08:50)
[2020-01-09] MEDS: HYDROcodone-acetaminophen 5-325 mg Tablet PO (11:48)
--- NOTE | 2020-01-09 12:09 | PC.RESP ---
Smoking Cessation sent to patient.
[2020-01-09 13:33] LABS: Hematocrit 33.7 % (37.0-47.0); Hemoglobin 11.1 g/dL (11.5-15.3); Mean Corpuscular HGB Conc 32.9 g/dL (30.0-36.0); Mean Corpuscular Hemoglobin 30.5 pg (28.0-34.0); Mean Corpuscular Volume 92.6 fL (81-99); Mean Platelet Volume 11.3 fL (7.4-10.4); Platelet Count 230 10^3/cmm (130-400); Red Blood Count 3.64 10^6/uL (4.1-5.3); Red Cell Distribution Width 12.5 % (12.1-15.1); White Blood Count 10.6 10^3/uL (4.0-10.0)
[2020-01-09] MEDS: docusate sodium 100 mg Capsule PO (18:35)
[2020-01-10] VITALS (19 sets, daily range): BP systolic 88–126; BP diastolic 54–79; PULSE 55–88; RESP 14–20; TEMP 36.2–36.8; O2SAT 97–98
--- NOTE | 2020-01-10 07:06 | ANES.PREANE2 ---
Pre-Anesthetic Assessment Pre-Anesthetic Assessment: Height/Weight: Height 1.68 m Weight 84.822 kg Temp Pulse Resp BP Pulse Ox 97.7 F 60 15 109/71 97 01/10/20 03:38 01/10/20 03:38 01/10/20 03:38 01/10/20 03:38 01/10/20 03:38 Preop Diagnosis: IUP Proposed Procedure: Operation Date: 01/10/20 07:30 Proposed Procedures p Bilateral Tubal Ligation(Not Applicable) - Yun Baum MD Was Beta Jess taken within 24 hours: N/A (0000) Social: Social History: Tobacco Exam: Pre-Anes Outpt Exam: alert, oriented x 3, clear to auscultation bilaterally and regular rate & rhythm Airway: Submandibular: WNL Cervical ROM: WNL MP: 2 Dentition: Full History/ROS: No significant history except as noted and No significant complaints Pulmonary: Pulmonary: None reported CV/HEM: CV/HEM: None reported : : None reported Hepatic: Hepatic: None reported GI: GI: None reported Metabolic: Metabolic: None reported Musc/skel: Musc/skel: None reported Neuropsych: Neuropsych: None reported Anesthetic Plan: ASA status: 2 Anesthesia: Anesthesia Evaluation and General Risk of > 500 ml blood loss (7ml/kg in children): No Meds/Allergies Current Medications: Current Medications Generic Name Dose Route Start Last Admin Trade Name Freq PRN Reason Stop Dose Admin Hydrocodone Bitart /Acetaminophen 1 - 2 tab 01/09/20 00:34 01/09/20 11:48 [place] 5-325 Mg PO 1 tab Q6H PRN Administration MODERATE TO SEVER E PAIN Docusate Sodium 100 mg 01/09/20 09:00 01/09/20 18:35 Colace PO 100 mg BID LEO Administration Ibuprofen 800 mg 01/09/20 09:00 01/09/20 20:16 Motrin PO 800 mg TID LEO Administration Multivit/ Folic Acid/Iron 1 cap 01/09/20 09:00 01/09/20 08:50 -U PO 1 cap DAILY LEO Administration PFSH Anesthesia PFSH: Social History (Updated 08/30/19 @ 10:47 by Sydnee Villarreal LPN, RT) Smoking and tobacco status: smoker, details unknown cigarettes Packs smoked per day: 0.5 Years cigarettes smoked: 8 Lives independently: Yes Household members: spouse Marital status: Current occupational status: employed 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
[2020-01-10] MEDS: sodium chloride 0.9% 1,000 ML 30 ML IV (07:15)
--- NOTE | 2020-01-10 07:28 | PM.PN ---
Subjective Subjective: Interval history: Doing well this morning, no complaints, decreased vaginal bleeding. Still wishes to continue with tubal ligation Vitals/I&O/Wt Last Vital Signs Temp 97.5 F L 01/10/20 07:18 Pulse 61 01/10/20 07:18 Resp 18 01/10/20 07:18 BP 109/65 01/10/20 07:18 Pulse Ox 97 01/10/20 07:18 Physical Exam HENMT: COMMON NORMALS: normocephalic and atraumatic HEAD & SCALP: normocephalic and atraumatic Eye: COMMON NORMALS: Equal, round and reactive pupils present and EOMs intact bilaterally PUPIL: Yes Equal, round and reactive pupils present Chest: COMMONS NORMALS: normal inspection of the chest GI: COMMON NORMALS: Soft to palpation, non-tender and No hepatosplenomegaly present PALPATION: Yes Soft to palpation and Yes No hepatosplenomegaly present Extremity: GENERAL: No calf tenderness and No edema Psych: COMMON NORMALS: mental status grossly normal Urinary Catheter Management^: Tran Latex: Cath Placed During This Visit: yes Reason for Continuing Indwelling Catheter: Accurate Measurement of Urinary Output in Critically Ill Patients Urinary Catheter Date of Insertion: 01/08/20 Urinary Catheter Time of Insertion: 02:00 Data : 01/09/20 13:04 A&P Assessment and plan (1) Request for sterilization: Proceed with bilateral tubal ligation Status: Acute (2) Normal spontaneous vaginal delivery: Routine care Status: Acute Attestations Medical Necessity Statement*: Routine care and surgery Coding Level of Care Code Acute Scientific Advisor for Ronaldo Fwoliverio Diagnoses Request for sterilization Z30.2 Normal spontaneous vaginal delivery O80
[2020-01-10] MEDS: ceFAZolin 1,000 mg SDV 2000 MG IVP (07:43)
--- NOTE | 2020-01-10 08:16 | PM.OP ---
Operative Report Date of procedure: January 10, 2020 Pre-op Diagnosis: Desired permanent surgical sterilization Post-op diagnosis: same Procedure Done: bilateral tubal ligation Specimens removed/disposition: Segments of right and left fallopian tubes Anesthesia: General Estimated blood loss (mL): 2 IV fluids (mL): 500 Condition: stable Disposition: PACU Procedure: Patient was taken to the OR where she was administered general anesthesia and then prepped and draped in normal sterile fashion in dorsal supine position. A curvilinear infraumbilical incision was made through her prior scar and carried through to the underlying layer of fascia sharply. The fascia was then grasped with Allis clamps and entered sharply using the Metzenbaums. The peritoneum was then entered bluntly. The left fallopian tube was grasped with a Lulu and brought into the operative field. Fimbria were visible. A midportion of the tube was ligated and excised. [place] were visible. The cut portions of the tube were coagulated using the Bovie and then returned to the abdomen. The segment of tube was sent to pathology. The right fallopian tube was then grasped with a [place] and brought into the operative field. Fimbria were visible. A midportion of the tube was ligated and excised. [place] were visible. The cut portions of the tube were then coagulated using the Bovie and returned to the abdomen. The fascia and peritoneum was then reapproximated using 0 Vicryl in a running fashion. The skin was then reapproximated using 4-0 Vicryl in a running fashion. 12 mL's of 1% lidocaine with epinephrine was injected circumferentially around the incision site. Steri-Strips and a pressure bandage were applied. Patient went to recovery in stable condition Sponge instrument and needle counts were correct
[2020-01-10] MEDS: fentaNYL 50 mcg/mL INJ 2mL IVP ×2 (08:27→08:37)
[2020-01-10] MEDS: ondansetron 2 mg/ML SDV 2 mL 4 MG IVP (08:30)
--- NOTE | 2020-01-10 09:15 | ANE.PACU2 ---
Inpatient post-anesthesia follow up: Airway intact: Yes Vital signs: Temperature 97.7 F Pulse Rate 62 Respiratory Rate 16 Blood Pressure 124/62 Pulse Oximetry 97 Oxygen Delivery Me thod Room Air Oxygen Flow Rate Fraction of Inspir ed Oxygen Hydration adequate: Yes Nausea and vomiting: No Pain level: 1 Mental status: Baseline
--- NOTE | 2020-01-10 09:16 | SUR.PHASEI ---
pt to floor per bed pt awake alert walked to bed ,umbilical drssing D/I handoff at bedside with floor nurse,
--- NOTE | 2020-01-10 09:26 | PC.NURSE ---
REPORT RECEIVED FROM SURGERY BY THIS NURSE. PT RETURNED TO FLOOR FROM SURGERY. PT NAUSEATED. RATES HER PAIN 10/10
--- NOTE | 2020-01-10 09:35 | PM.PACU ---
PACU note PACU note: VSS, good pain control. Post-Anesthesia Exam: awake Disposition: discharged
[2020-01-10] MEDS: promethazine 25 mg/mL SDV 1 mL 12.5 MG IM (10:08)
[2020-01-10] MEDS: HYDROcodone-acetaminophen 5-325 mg Tablet PO (10:55)
--- NOTE | 2020-01-10 12:02 | P.DS_ITS ---
Discharge Providers INTERNET MARKETING CONSULTANT Date of Admission: 01/07/20 22:52 Date of Discharge: 01/10/20 Attending Provider at Admission: Yun Baum MD Attending Provider at Discharge: Yun Baum MD Diagnoses at Discharge Discharge Diagnosis (1) Request for sterilization: Status: Acute (2) Normal spontaneous vaginal delivery: Status: Acute Reason for Visit Reason for Visit: Contractions Hospital Course Discharge Summary: This is a 24-year-old G3 now P3 who had a normal spontaneous vaginal delivery of a male infant. Mother did well after delivery. On day #1 she underwent a bilateral tubal ligation. She did well postoperatively. She was ambulating, tolerating a regular diet, had good pain control and was comfortable with discharge home. Information Peripartum Data: Delivery Method: Vaginal Physical Exam Const: COMMON NORMALS: no acute distress GENERAL APPEARANCE: cooperative and comfortable Eye: COMMON NORMALS: Equal, round and reactive pupils present and EOMs intact bilaterally PUPIL: Yes Equal, round and reactive pupils present Chest: COMMONS NORMALS: normal inspection of the chest Resp: COMMON NORMALS: normal respiratory effort and clear to auscultation bilaterally AUSCULTATION: clear to auscultation bilaterally Cardio: COMMON NORMALS: regular rate and regular rhythm RATE: regular rate RHYTHM: regular rhythm GI: COMMON NORMALS: Soft to palpation INSPECTION: Yes incision (Clean dry and intact) PALPATION: Yes Soft to palpation and Yes Tenderness to palpation present (GI) (Appropriate postoperative) Extremity: COMMON NORMALS: no calf tenderness GENERAL: No edema Urinary Catheter Management^: Tran Latex: Cath Placed During This Visit: yes Reason for Continuing Indwelling Catheter: Accurate Measurement of Urinary Output in Critically Ill Patients Urinary Catheter Date of Insertion: 01/08/20 Urinary Catheter Time of Insertion: 02:00 Discharge Data Data Completed and Pending: Pending at discharge Category Date Time Status Hemagram Timed Lab 01/10/20 20:29 Uncollected Pathology: Surgic al [PTH] Routine Pth 01/10/20 08:03 Received Labs from last 24 hours 01/09/20 13:04 WBC 10.6 H RBC 3.64 L Hgb 11.1 L Hct 33.7 L MCV 92.6 MCH 30.5 MCHC 32.9 RDW 12.5 Plt Count 230 MPV 11.3 H Vitals: Last Vital Signs Temp 97.7 F 01/10/20 11:30 Pulse 56 L 01/10/20 11:30 Resp 16 01/10/20 11:30 BP 112/67 01/10/20 11:30 Pulse Ox 97 01/10/20 11:30 Discharge Plan Discharge Patient Disposition: Home Condition: Stable Prescriptions: New hydrocodone-acetaminophen 5-325 mg Tablet 1 - 2 tab PO Q6H PRN (Reason: Pain, Severe) Qty: 10 RF: 0 ibuprofen 800 mg Tablet 800 mg PO TID PRN (Reason: Abdominal Discomfort) Qty: 30 RF: 0 Continued prenat.vits,daniel,bti-brxp-pbipd Tablet 1 tab PO DAILY RF: 0 Discharge Orders: Discharge Order (Routine); Ordered 01/10/20 Ordered By: Yun Baum Referrals: Yun Baum MD [Physician] - 02/13/20 10:30 am (Your 4 week appointment has been scheduled for 02/13/2020 at 10:[address] Baum. follow up 1 week inscsion check) Discharge Diet: Usual diet Discharge Activity: Limit activity as instructed Patient Instructions: Vitamins (By mouth), OB Discharge Report, OB Food/Drug Interaction Guide, OB Proud Parent Packet, OB Vaginal Deliveries Discharge Attestations INTERNET MARKETING CONSULTANT Time Spent in Discharge Care*: less than 30 min Coding Level of Care Code Acute Passenger Booking Clerk for Chg Fwd Diagnoses Request for sterilization Z30.2 Normal spontaneous vaginal delivery O80
[2020-01-10] MEDS: docusate sodium 100 mg Capsule PO (17:56)
== END 2020-01-10 20:36 | disposition home or self-care (01) | DRG 797 ==
LOC: OPOB 01-08 00:50 → OBGYN 01-08 00:50
PROVIDERS: Admitting Provider Family Medicine; Visit Provider Family Medicine
PROC: 0U574ZZ Destruction of Bilateral Fallopian Tubes, Percutaneous Endoscopic Approach (ICD-10-PCS; CPT 58605; principal; 2020-01-10 07:30)
DX: O69.2XX0 Labor and delivery complicated by other cord entanglement, with compression, not applicable or unspecified (principal); O41.03X0 Oligohydramnios, third trimester, not applicable or unspecified; Z37.0 Single live birth; O99.334 Smoking (tobacco) complicating childbirth; F17.210 Nicotine dependence, cigarettes, uncomplicated; Z3A.37 37 weeks gestation of pregnancy
CPT/HCPCS: 12345; 36415; 51702; 59025; 59409; 85025; 85027; 86850; 86900; 88302; 96372; 96374; 96375; 99211; J0690; J1100; J1885; J2405; J2550; J2704; J2710; J2795; J3010; J3490; J7030

== ENCOUNTER → 2021-01-01 10:36 | Outpatient (BNVA) | payer BC, SELFPAY | PROVIDERS: Visit Provider Nurse Practitioner Family | DX: Z20.822 Contact with and (suspected) exposure to COVID-19 (principal) | CPT/HCPCS: 87635 ==

== ENCOUNTER → 2021-04-23 09:30 | Outpatient (BNVA) | payer BC, MEDICAID, SELFPAY | PROVIDERS: Visit Provider Nurse Practitioner Family | DX: Z20.822 Contact with and (suspected) exposure to COVID-19 (principal) | CPT/HCPCS: 87426 ==

== ENCOUNTER 2021-09-24 02:58 | Emergency (ER) | payer BC, MEDICAID, SELFPAY ==
[2021-09-24 02:59] VITALS: BP 104/67; PULSE 76; RESP 16; TEMP 36.6; O2SAT 96; BMI 26.6
--- NOTE | 2021-09-24 03:02 | XRR_ITS ---
PROCEDURE INFORMATION: Exam: XR Chest Exam date and time: 09/24/2021 3:35 AM Age: 26 years old Clinical indication: Pain; Chest pressure; Additional info: Cp TECHNIQUE: Imaging protocol: XR of the chest. Views: 1 view. COMPARISON: MR MRCP [id number] 05/31/2018 3:55 AM FINDINGS: Lungs: No focal airspace disease. Pleural spaces: Unremarkable. No pleural effusion. No pneumothorax. Heart/Mediastinum: Cardiomediastinal silhouette is within normal limits. Bones/joints: Unremarkable. XR/XR chest 1V portable [id number] IMPRESSION: No acute cardiopulmonary abnormality.
--- NOTE | 2021-09-24 03:02 | ECG_ITS ---
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 Measurements Intervals [place] Rate: 80 P: 64 SC: 139 QRS: 38 QRSD: 97 T: 58 QT: 368 QTc: 426 Interpretive Statements SINUS RHYTHM POSSIBLE RIGHT VENTRICULAR CONDUCTION DELAY [RSR (QR) IN V1/V2] No previous ECG available for comparison Electronically Signed On 09-24-2021 20:50:40 CDT by Rajendra Lechuga M.D. [id number] f
[2021-09-24 03:15] VITALS: BP 116/68; PULSE 88; RESP 16; O2SAT 98
--- NOTE | 2021-09-24 03:15 | ECG_ITS ---
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 Measurements Intervals [place] Rate: 80 P: 64 [place]: 139 QRS: 38 QRSD: 97 T: 58 QT: 368 QTc: 426 Interpretive Statements SINUS RHYTHM POSSIBLE RIGHT VENTRICULAR CONDUCTION DELAY [RSR (QR) IN V1/V2] No previous ECG available for comparison Electronically Signed On 09-24-2021 20:50:43 CDT by Rajendra Lechuga M.D. [email or web address] behavioral [email or web address] biloxiActinium [email or web address] clinic avon [id number] f
--- NOTE | 2021-09-24 03:16 | W.ED.CHESTPA ---
HPI - Chest Pain General: Chief Complaint: Chest Pain Stated Complaint: Chest Pain Time Seen by Provider: 09/24/21 03:02 Source: patient Mode of arrival: ambulatory Limitations: no limitations History of Present Illness: 26-year-old female states started having some central chest pain roughly 1 hour ago. She has been a sharp pain in the center of her chest radiates to her right shoulder she also had some numbness down her right arm. She denies any weakness she denies any shortness of breath denies any fever cough denies any worsening improving factors. Associated symptoms: Deny abdominal pain, dyspnea, fever(s), nausea or vomiting Review of Systems Const: Denies: fever(s), chills, body aches or change in appetite Eyes: Denies: blurry vision or eye discomfort ENMT: Denies: throat pain or dental pain Card: Reports: chest pain Resp: Denies: dyspnea GI: Denies: abdominal pain, nausea, vomiting or diarrhea : Denies: dysuria Musc: Denies: neck pain or back pain Skin/Breast: Denies: rash Neuro: Denies: headache(s) Psych: Denies: depression Lorenzo/Lymph: Denies: easy bruising All/Imm: Denies: urticaria PFSH ED PFSH: Social History Smoking and tobacco status: smoker, details unknown cigarettes Packs smoked per day: 0.5 Years cigarettes smoked: 8 Lives independently: Yes Current occupational status: employed Current gender identity: Female Physical Exam Const: COMMON NORMALS: no acute distress, patient oriented x3 and healthy appearing HENMT: COMMON NORMALS: normocephalic and atraumatic HEAD & SCALP: normocephalic and atraumatic Eye: COMMON NORMALS: Equal, round and reactive pupils present and EOMs intact bilaterally PUPIL: Yes Equal, round and reactive pupils present Neck/C-Spine: COMMON NORMALS: full ROM and supple Chest: COMMONS NORMALS: normal inspection of the chest and normal palpation of entire chest wall Resp: COMMON NORMALS: normal respiratory effort, No retractions, No use of accessory muscles and clear to auscultation bilaterally AUSCULTATION: clear to auscultation bilaterally Cardio: COMMON NORMALS: regular rate, regular rhythm and No murmurs present (Cardio) RATE: regular rate RHYTHM: regular rhythm GI: COMMON NORMALS: Normal to inspection, nondistended, normoactive bowel sounds present, Soft to palpation, non-tender and no masses PALPATION: Yes Soft to palpation Extremity: COMMON NORMALS: normal to inspection and full ROM Neuro: COMMON NORMALS: patient oriented x3, moves all extremities and no focal motor deficits Psych: COMMON NORMALS: mental status grossly normal, Normal thought process present and cooperative THOUGHT PROCESS: Normal thought process present Skin: COMMON NORMALS: no rashes or lesions noted and no wounds GENERAL SKIN EXAM: no rashes or lesions noted Course Vital Signs: Vital signs: Vital Signs Temperature 97.9 F 09/24/21 02:59 Pulse Rate 88 09/24/21 03:15 Respiratory Rate 16 09/24/21 03:15 Blood Pressure 116/68 09/24/21 03:15 Pulse Oximetry 98 09/24/21 03:15 MDM - Chest Pain Medical Decision Making Patient presents here with chest pains atypical in nature she has had 3 energy drinks tonight could be causing some of the pain her EKG troponin normal no signs of dissection or pulmonary embolism she is stable for discharge is to follow-up with PCP and return if worsening. Lab Data : 09/24/21 03:20 09/24/21 03:20 Laboratory Results WBC 8.3 10^3/uL (4.0-10.0) 09/24/21 03:20 RBC 4.20 10^6/uL (4.1-5.3) 09/24/21 03:20 Hgb 12.8 g/dL (11.5-15.3) 09/24/21 03:20 Hct 37.5 % (37.0-47.0) 09/24/21 03:20 MCV 89.3 fl (81-99) 09/24/21 03:20 MCH 30.5 pg (28.0-34.0) 09/24/21 03:20 MCHC 34.1 g/dL (30.0-36.0) 09/24/21 03:20 RDW 11.9 % (12.1-15.1) L 09/24/21 03:20 Plt Count 271 10^3/cmm (130-400) 09/24/21 03:20 MPV 10.2 fL (7.4-10.4) 09/24/21 03:20 Neut % (Auto) 53.7 % 09/24/21 03:20 Lymph % (Auto) 34.1 % 09/24/21 03:20 [place] % (Auto) 9.9 % 09/24/21 03:20 Eos % (Auto) 1.9 % 09/24/21 03:20 Baso % (Auto) 0.2 % 09/24/21 03:20 Neut # (Auto) 4.43 10^3/uL (1.8-7.7) 09/24/21 03:20 Lymph # (Auto) 2.8 10^3/uL (0.8-4.8) 09/24/21 03:20 [place] # (Auto) 0.8 10^3/uL (0.2-0.9) 09/24/21 03:20 Eos # (Auto) 0.2 10^3/uL (0.0-0.8) 09/24/21 03:20 Baso # (Auto) 0.0 10^3/uL (0.0-0.1) 09/24/21 03:20 Nucleated RBC % (auto) 0 % 09/24/21 03:20 Nucleated RBCs # 0.0 /100WBC 09/24/21 03:20 Sodium 138 mmol/L (136-145) 09/24/21 03:20 Potassium 3.7 mmol/L (3.5-5.1) 09/24/21 03:20 Chloride 103 mmol/L (98-107) 09/24/21 03:20 Carbon Dioxide 22 mmol/L (22-29) 09/24/21 03:20 Anion Gap 16.7 (5-19) 09/24/21 03:20 BUN 13 mg/dL (6-20) 09/24/21 03:20 Creatinine 0.4 mg/dL (0.5-0.9) L 09/24/21 03:20 GFR Calculation 192.9 mL/min (90-130) H 09/24/21 03:20 Glucose 92 mg/dL (65-115) 09/24/21 03:20 Calculated Osmolality 286 mOsm/kg (285-295) 09/24/21 03:20 Calcium 9.4 mg/dL (8.5-10.5) 09/24/21 03:20 Total Bilirubin 0.2 mg/dL (0.15-1.2) 09/24/21 03:20 AST 11 U/L (0-32) 09/24/21 03:20 ALT 7 U/L (0-33) 09/24/21 03:20 Alkaline Phosphatase 62 IU/L (35-105) 09/24/21 03:20 Troponin T Baseline 6 ng/L (0-10) 09/24/21 03:20 Total Protein 7.3 g/dL (6.6-8.7) 09/24/21 03:20 Albumin 4.2 g/dL (3.5-5.2) 09/24/21 03:20 Globulin 3.1 g/dL (1.3-4.6) 09/24/21 03:20 HCG, Qual Negative (Negative) 09/24/21 03:20 EKG Data EKG 1: I personally reviewed and interpreted this EKG as follows: EKG interpretation date: 09/24/21 EKG interpretation time: 03:03 Interpretation: nsr hr80 with no st or t wave abnormalities qrs 97 qtc 404 Discharge Plan Discharge Patient Disposition: Home Clinical Impression: Chest pain Condition: Stable Prescriptions: No Action No Known Home Medications 0RF Discharge Orders: Discharge ED (Routine); Ordered 09/24/21 Ordered By: Jessee Perdue Discharge Diet: Advance as tolerated Discharge Activity: Resume usual activity Patient Instructions: Chest Pain (ED) Coding Level of Care Code ED Program Management Specialist for Chg Fwd Exam Comprehensive
[2021-09-24 03:27] LABS: Basophils % 0.2 %; Eosinophils # 0.2 10^3/uL (0.0-0.8); Eosinophils % 1.9 %; Hematocrit 37.5 % (37.0-47.0); Hemoglobin 12.8 g/dL (11.5-15.3); Lymphocytes # 2.8 10^3/uL (0.8-4.8); Lymphocytes % 34.1 %; Mean Corpuscular HGB Conc 34.1 g/dL (30.0-36.0); Mean Corpuscular Hemoglobin 30.5 pg (28.0-34.0); Mean Corpuscular Volume 89.3 fl (81-99); Mean Platelet Volume 10.2 fL (7.4-10.4); Monocytes # 0.8 10^3/uL (0.2-0.9); Monocytes % 9.9 %; Neutrophils # 4.43 10^3/uL (1.8-7.7); Neutrophils % 53.7 %; Nucleated Red Blood Cells % 0 %; Platelet Count 271 10^3/cmm (130-400); Red Cell Distribution Width 11.9 % (12.1-15.1); White Blood Count 8.3 10^3/uL (4.0-10.0)
[2021-09-24 03:45] LABS: Alanine Aminotransferase 7 U/L (0-33); Albumin Level 4.2 g/dL (3.5-5.2); Alkaline Phosphatase 62 IU/L (35-105); Anion Gap 16.7 (5-19); Aspartate Amino Transferase 11 U/L (0-32); Blood Urea Nitrogen 13 mg/dL (6-20); Calcium 9.4 mg/dL (8.5-10.5); Carbon Dioxide 22 mmol/L (22-29); Chloride 103 mmol/L (98-107); Globulin 3.1 g/dL (1.3-4.6); Glomerular Filtration Rate 192.9 mL/min (90-130); Glucose 92 mg/dL (65-115); HCG, Serum Qual Negative (Negative); Osmolality Calculated 286 mOsm/kg (285-295); Potassium 3.7 mmol/L (3.5-5.1); Sodium 138 mmol/L (136-145); Total Bilirubin 0.2 mg/dL (0.15-1.2); Total Protein 7.3 g/dL (6.6-8.7); Troponin(5th) Baseline 6 ng/L (0-10)
[2021-09-24 04:00] VITALS: BP 103/68; PULSE 66; RESP 15; O2SAT 100
[2021-09-24] MEDS: naproxen 500 mg Tablet PO (04:28)
== END 2021-09-24 04:30 | disposition home or self-care (01) ==
PROVIDERS: Emergency Provider Emergency Medicine
DX: R07.89 Other chest pain (principal); F17.210 Nicotine dependence, cigarettes, uncomplicated
CPT/HCPCS: 71045; 80053; 84484; 84703; 85025; 93005; 99284

== ENCOUNTER 2021-12-09 23:03 | Emergency (ER) | payer BC, MEDICAID, SELFPAY ==
[2021-12-09 23:07] VITALS: BP 99/63; PULSE 124; RESP 18; TEMP 37.6; O2SAT 99; BMI 26.5
--- NOTE | 2021-12-09 23:16 | ECG_ITS ---
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 Measurements Intervals [place] Rate: 124 P: 64 GA: 144 QRS: -28 QRSD: 85 T: 63 QT: 393 QTc: 565 Interpretive Statements SINUS TACHYCARDIA BORDERLINE LEFT AXIS DEVIATION [QRS AXIS < -20] POSSIBLE RIGHT VENTRICULAR CONDUCTION DELAY [RSR (QR) IN V1/V2] NONSPECIFIC T-WAVE ABNORMALITY ABNORMAL RHYTHM ECG Compared to ECG 09/24/2021 03:03:41 T-wave abnormality now present Sinus rhythm no longer present Electronically Signed On 12-10-2021 20:49:41 CDT by Chanelle Stovall M.D. [email or web address]
--- NOTE | 2021-12-09 23:16 | XRR_ITS ---
PROCEDURE INFORMATION: Exam: XR Chest Exam date and time: 12/09/2021 11:27 PM Age: 26 years old Clinical indication: Cough and shortness of breath; Chest pressure; Patient HX: C/O chest pain with SOB and cough. TECHNIQUE: Imaging protocol: Radiologic exam of the chest. Views: 1 view. COMPARISON: CR XR chest 1V portable [id number] 09/24/2021 3:35 AM FINDINGS: Lungs: Unremarkable. No consolidation. Pleural spaces: Unremarkable. No pleural effusion. No pneumothorax. Heart/Mediastinum: Unremarkable. No cardiomegaly. Bones/joints: Unremarkable. XR/XR chest 1V portable [id number] IMPRESSION: No acute findings.
--- NOTE | 2021-12-09 23:18 | ED_ITS ---
HPI - Chest Pain General: Chief Complaint: Chest Pain Stated Complaint: Chest pain, back pain Time Seen by Provider: 12/09/21 23:16 History of Present Illness: 26-year-old female comes in today for complaints of low back pain and chest discomfort. Patient reports coughing with occasional episodes of nausea starting this evening about 9:00. 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 Patient reports she was at work when she suddenly be started feeling ill and having chest discomfort. Patient appears mildly unwell. Patient appears in mild to moderate pain. Patient was told that it was over consumption of energy drinks that caused her problem. Associated symptoms: Reports nausea and vomiting; Deny fever(s) Review of Systems Const: Denies: fever(s) Card: Reports: chest pain GI: Reports: nausea and vomiting Musc: Reports: back pain PFS ED PFSH: Social History Smoking and tobacco status: smoker, details unknown cigarettes Packs smoked per day: 0.5 Years cigarettes smoked: 8 Lives independently: Yes Current occupational status: employed Current gender identity: Female Female Reproductive History: Date of last menstrual period: 11/22/21 Physical Exam Const: COMMON NORMALS: alert HENMT: COMMON NORMALS: normocephalic HEAD & SCALP: normocephalic THROAT: posterior oropharynx normal Neck/C-Spine: COMMON NORMALS: full ROM and no lymphadenopathy Chest: CHEST: Yes tenderness Resp: COMMON NORMALS: normal respiratory effort and clear to auscultation bilaterally AUSCULTATION: clear to auscultation bilaterally Cardio: COMMON NORMALS: regular rhythm RATE: tachycardic RHYTHM: regular rhythm GI: COMMON NORMALS: Soft to palpation and non-tender PALPATION: Yes Soft to palpation Back/Pelvis: THORACIC SPINE/UPPER BACK: No thoracic spinal tenderness LUMBAR SPINE/LOWER BACK: Yes paraspinal muscle tenderness Lumbar paraspinal muscle tenderness: left Extremity: COMMON NORMALS: normal to inspection Neuro: SENSORIUM/ORIENTATION: Yes alert Skin: COMMON NORMALS: no rashes or lesions noted GENERAL SKIN EXAM: no rashes or lesions noted Course Vital Signs: Vital signs: Vital Signs Temperature 99.7 F H 12/09/21 23:07 Pulse Rate 124 H 12/09/21 23:07 Respiratory Rate 18 12/09/21 23:07 Blood Pressure 99/63 12/09/21 23:07 Pulse Oximetry 99 12/09/21 23:07 MDM - Chest Pain Medical Decision Making 26-year-old female comes in today for complaints of chest and back pain. On ex am patient's heart rate was elevated at 120. Blood pressure was normal. Lungs were clear to auscultation. Temperature was 99.7. Patient felt unwell. Patient reported a history of a blood clot in her chamber of her heart and presently takes Eliquis. Differential diagnosis includes ACS, PE, pneumonia, worried well, musculoskeletal pain. CBC, CMP were unremarkable. D-dimer and troponin were negative. Chest x-ray was normal. Patient's temperature did elevate from 99 7-100.3 while in the ER. Urinalysis was negative for signs of infection or blood in the urine. Suspect patient probably is coming down with a viral syndrome. We will put patient on for 2 days. Patient had improvement of symptoms after acetaminophen and hydrocodone. Patient reported understanding of care plan need for follow-up or return to the ER. COVID-19 testing was sent out. Lab Data : 12/09/21 23:16 12/09/21 23:16 Radiology Impressions Chest X-Ray 12/09/21 23:16 IMPRESSION: No acute findings. Laboratory Results WBC 7.9 10^3/uL (4.0-10.0) 12/09/21 23:16 RBC 4.13 10^6/uL (4.1-5.3) 12/09/21 23:16 Hgb 12.5 g/dL (11.5-15.3) 12/09/21 23:16 Hct 36.9 % (37.0-47.0) L 12/09/21 23:16 MCV 89.3 fl (81-99) 12/09/21 23:16 MCH 30.3 pg (28.0-34.0) 12/09/21 23:16 MCHC 33.9 g/dL (30.0-36.0) 12/09/21 23:16 RDW 11.9 % (12.1-15.1) L 12/09/21 23:16 Plt Count 264 10^3/cmm (130-400) 12/09/21 23:16 MPV 9.8 fL (7.4-10.4) 12/09/21 23:16 Neut % (Auto) 85.6 % 12/09/21 23:16 Lymph % (Auto) 4.8 % 12/09/21 23:16 [place] % (Auto) 8.6 % 12/09/21 23:16 Eos % (Auto) 0.4 % 12/09/21 23:16 Baso % (Auto) 0.1 % 12/09/21 23:16 Neut # (Auto) 6.77 10^3/uL (1.8-7.7) 12/09/21 23:16 Lymph # (Auto) 0.4 10^3/uL (0.8-4.8) L 12/09/21 23:16 [place] # (Auto) 0.7 10^3/uL (0.2-0.9) 12/09/21 23:16 Eos # (Auto) 0.0 10^3/uL (0.0-0.8) 12/09/21 23:16 Baso # (Auto) 0.0 10^3/uL (0.0-0.1) 12/09/21 23:16 Nucleated RBC % (auto) 0 % 12/09/21 23:16 Nucleated RBCs # 0.0 /100WBC 12/09/21 23:16 D-Dimer <= 0.27 ug/mIFEU (0-0.59) 12/09/21 23:16 Sodium 136 mmol/L (136-145) 12/09/21 23:16 Potassium 4.0 mmol/L (3.5-5.1) 12/09/21 23:16 Chloride 100 mmol/L (98-107) 12/09/21 23:16 Carbon Dioxide 25 mmol/L (22-29) 12/09/21 23:16 Anion Gap 15.0 (5-19) 12/09/21 23:16 BUN 9 mg/dL (6-20) 12/09/21 23:16 Creatinine 0.5 mg/dL (0.5-0.9) 12/09/21 23:16 GFR Calculation 149.1 mL/min (90-130) H 12/09/21 23:16 Glucose 105 mg/dL (65-115) 12/09/21 23:16 Calculated Osmolality 281 mOsm/kg (285-295) L 12/09/21 23:16 Calcium 9.3 mg/dL (8.5-10.5) 12/09/21 23:16 Total Bilirubin 0.2 mg/dL (0.15-1.2) 12/09/21 23:16 AST 15 U/L (0-32) 12/09/21 23:16 ALT 11 U/L (0-33) 12/09/21 23:16 Alkaline Phosphatase 69 IU/L (35-105) 12/09/21 23:16 Troponin T Baseline 6 ng/L (0-10) 12/09/21 23:16 Total Protein 7.0 g/dL (6.6-8.7) 12/09/21 23:16 Albumin 4.6 g/dL (3.5-5.2) 12/09/21 23:16 Globulin 2.4 g/dL (1.3-4.6) 12/09/21 23:16 Lipase 15 U/L (13-60) 12/09/21 23:16 Urine Color Yellow (Yellow) 12/10/21 00:20 Urine Appearance Clear (CLEAR) 12/10/21 00:20 Urine pH 8 (5-7) H 12/10/21 00:20 Ur Specific [place] 1.010 (1.005-1.030) 12/10/21 00:20 Urine Protein Neg (Negative) 12/10/21 00:20 Urine Glucose (UA) Norm (Normal) 12/10/21 00:20 Urine Ketones Negative (Negative) 12/10/21 00:20 Urine Blood Neg (Negative) 12/10/21 00:20 Urine Nitrate Negative (Negative) 12/10/21 00:20 Urine Bilirubin Neg (Negative) 12/10/21 00:20 Prot Sulfosalicylic Acd Negative (Negative) 12/10/21 00:20 Urine Urobilinogen Norm mg/dL (Negative) 12/10/21 00:20 Ur Leukocyte Esterase Negative (Negative) 12/10/21 00:20 Urine HCG, Qual Negative (Negative) 12/10/21 00:20 Discharge Plan Discharge Patient Disposition: Home Clinical Impression: Chest pain, Back pain, Viral syndrome Condition: Stable Prescriptions: No Action No Known Home Medications 0RF Discharge Orders: Discharge ED (Routine); Ordered 12/10/21 Ordered By: Kenny Weiss Discharge Diet: Usual diet Discharge Activity: Increase activity as tolerated Patient Instructions: Opioid Safety Activity Restrictions/Additional Instructions: Home and rest. Drink plenty of fluids. Acetaminophen and ibuprofen for pain. The COVID-19 test will take up to 48 hours for results. Follow-up with primary care as needed. Return to ER for worsening symptoms or new concerns. Stand Alone Forms: Work/School Release Coding Level of Care Code ED Managed Care Analyst for [place] Fwd Exam Comprehensive
[2021-12-09 23:25] LABS: Basophils % 0.1 %; Eosinophils % 0.4 %; Hematocrit 36.9 % (37.0-47.0); Hemoglobin 12.5 g/dL (11.5-15.3); Lymphocytes # 0.4 10^3/uL (0.8-4.8); Lymphocytes % 4.8 %; Mean Corpuscular HGB Conc 33.9 g/dL (30.0-36.0); Mean Corpuscular Hemoglobin 30.3 pg (28.0-34.0); Mean Corpuscular Volume 89.3 fl (81-99); Mean Platelet Volume 9.8 fL (7.4-10.4); Monocytes # 0.7 10^3/uL (0.2-0.9); Monocytes % 8.6 %; Neutrophils # 6.77 10^3/uL (1.8-7.7); Neutrophils % 85.6 %; Nucleated Red Blood Cells % 0 %; Platelet Count 264 10^3/cmm (130-400); Red Blood Count 4.13 10^6/uL (4.1-5.3); Red Cell Distribution Width 11.9 % (12.1-15.1); White Blood Count 7.9 10^3/uL (4.0-10.0)
[2021-12-09 23:41] LABS: D Dimer <= 0.27 ug/mIFEU (0-0.59)
[2021-12-09 23:46] LABS: Alanine Aminotransferase 11 U/L (0-33); Albumin Level 4.6 g/dL (3.5-5.2); Alkaline Phosphatase 69 IU/L (35-105); Aspartate Amino Transferase 15 U/L (0-32); Blood Urea Nitrogen 9 mg/dL (6-20); Calcium 9.3 mg/dL (8.5-10.5); Carbon Dioxide 25 mmol/L (22-29); Chloride 100 mmol/L (98-107); Globulin 2.4 g/dL (1.3-4.6); Glomerular Filtration Rate 149.1 mL/min (90-130); Glucose 105 mg/dL (65-115); Lipase 15 U/L (13-60); Osmolality Calculated 281 mOsm/kg (285-295); Sodium 136 mmol/L (136-145); Total Bilirubin 0.2 mg/dL (0.15-1.2)
[2021-12-09 23:47] LABS: Troponin(5th) Baseline 6 ng/L (0-10)
[2021-12-10] MEDS: HYDROcodone-acetaminophen 7.5-325 mg Tablet 1 TAB PO (00:15)
[2021-12-10 00:22] LABS: Add Urine Microscopic? NO; Charge for UA Resulting for Rev
[2021-12-10 00:35] LABS: Bilirubin Urine Neg (Negative); Blood Urine Neg (Negative); Glucose Urine UA Norm (Normal); Ketones Urine Negative (Negative); Leukocyte Esterase Urine Negative (Negative); Nitrate Urine Negative (Negative); Protein Urine Neg (Negative); Sulfosalicylic Acid Urine Negative (Negative); Urine Appearance Clear (CLEAR); Urine Color Yellow (Yellow); Urobilinogen Urine Norm (Negative); pH Urine 8 (5-7)
[2021-12-10] MEDS: ondansetron 2 mg/ML SDV 2 mL 4 MG IVP (00:53)
[2021-12-10] MEDS: sodium chloride 0.9% 1,000 ML 999 ML IV (00:53)
[2021-12-10 01:19] VITALS: BP 123/80; PULSE 73; RESP 16; TEMP 37.9; O2SAT 97
[2021-12-10] MEDS: ketorolac 30 mg/mL INJ IVP (01:19)
[2021-12-10 01:43] VITALS: BP 123/80; PULSE 73; RESP 16; TEMP 37.9; O2SAT 97
[2021-12-11 22:51] LABS: Quest SARS-CoV-2 RNA DETECTED (NOT DETECTED)
== END 2021-12-10 01:45 | disposition home or self-care (01) ==
PROVIDERS: Emergency Provider Nurse Practitioner Family
DX: U07.1 COVID-19 (principal); R07.9 Chest pain, unspecified; M54.9 Dorsalgia, unspecified; F17.210 Nicotine dependence, cigarettes, uncomplicated
CPT/HCPCS: 71045; 80053; 81003; 81025; 83690; 84484; 85025; 85378; 87635; 93005; 96374; 96375; 99285; J1885; J2405; J7030

== ENCOUNTER → 2022-06-05 14:05 | Outpatient (BNVA) | payer OTHER, SELFPAY | PROVIDERS: Visit Provider Nurse Practitioner Family | DX: S69.90XA Unspecified injury of unspecified wrist, hand and finger(s), initial encounter (principal); X50.1XXA Overexertion from prolonged static or awkward postures, initial encounter | CPT/HCPCS: 73130 ==

== ENCOUNTER → 2024-06-15 14:05 | Outpatient (BNVA) | payer MEDICAID, SELFPAY | PROVIDERS: Visit Provider Nurse Practitioner Women's Health | DX: T19.3XXA Foreign body in uterus, initial encounter (principal); X58.XXXA Exposure to other specified factors, initial encounter | CPT/HCPCS: 76857 ==

== ENCOUNTER → 2025-01-13 16:48 | Outpatient (BNVA) | payer MEDICAID, SELFPAY | DX: R19.7 Diarrhea, unspecified (principal) | CPT/HCPCS: 87045; 87177; 87209; 87328; 87329; 87427; 87449 ==